=== PATIENT | female | born 1995 | race Caucasian/White ===

== ENCOUNTER 2025-05-12 19:46 | Emergency (ER) | payer MEDICAID ==
[~2025-05-12] VITALS: Ht 162.6 cm; Wt 82.0 kg
[2025-05-12 20:03] VITALS: TEMP 37; O2SAT 100
[2025-05-12 20:05] VITALS: BP 104/71; PULSE 77; RESP 18; TEMP 98.60; O2SAT 100
[2025-05-12] MEDS: TETANUS, DIPHTHERIA, PERTUSSIS VAC/PF 0.5ML (>10YR OLD) IM ONE (22:24)
[2025-05-12] MEDS: LIDOCAINE HCL 1% 20ML VIAL INFIL ONE (22:45)
== END 2025-05-12 23:27 | disposition home or self-care (01) ==
LOC: ER 19:46
DX: S61.012A Laceration without foreign body of left thumb without damage to nail, initial encounter (principal); X58.XXXA Exposure to other specified factors, initial encounter; Y93.89 Activity, other specified; Y92.89 Other specified places as the place of occurrence of the external cause; Y99.8 Other external cause status
CPT/HCPCS: 90715; 12001; 90471; 99283; J2003; Z7610